=== PATIENT | female | born 1980 | race Caucasian/White ===

== ENCOUNTER → 2017-11-28 08:29 | Outpatient (CLI) | payer MEDICAID, SELFPAY | DX: B18.2 Chronic viral hepatitis C (principal) | CPT/HCPCS: 36415 ==

== ENCOUNTER 2018-01-11 13:23 | Emergency (ER) | payer MEDICAID, SELFPAY ==
[2018-01-11 13:24] VITALS: BP 131/80; PULSE 72; RESP 16; TEMP 37; O2SAT 100; BMI 28.3
--- NOTE | 2018-01-11 14:17 | ED.VISSUMM ---
- ER Visit Summary Date of Service: 01/11/18 Chief Complaint: [Pain, redness, and swelling to both axilla] History of Present Illness: The patient is a 37 F presents the emergency department complaint of swelling and discomfort to both axilla that started 4 days ago. Patient was seen at urgent care 2 days ago and started on Keflex and Bactrim. Patient states that the lesions have gotten larger and more painful making it difficult for her to work. Patient has had incision and drainage of similar abscesses in the past. Patient denies any fever. 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 [] Physical Examination: [HEENT-PERRLA, EOMI. Cranial nerves II through XII grossly intact. TMs clear. Mucous membranes moist. No adenopathy. Cardiovascular-regular rate and rhythm without murmur or ectopy Lungs-clear to auscultation, chest wall stable without crepitus or subcu emphysema Abdomen-normoactive bowel sounds, soft, nontender, no rebound or rigidity, no peritoneal signs. Extremities-intact ?4, normal range of motion, normal pulses, atraumatic]. Evaluation of both axilla does reveal abscesses 2 in the right axilla and one in the left axilla. The abscess in the left axilla is draining some purulent debris spontaneously. There is faint surrounding erythema. Test Results: [None indicated] Emergency Department Course and Treatment: [Patient was offered incision and drainage to which she agreed. Area of the right and left axilla sterilely draped and prepped. Using 1% lidocaine total of 5 cc used to anesthetize all 3 lesions. Using an 11 blade I made 1 cm incision and each lesion with large amount of purulent debris expressed from all 3. Used curved hemostats to undermine the soft tissues.] Treatment Plan: [Patient to continue with her Keflex and Bactrim and I will refer her to for follow-up Disposition: [Discharged home in stable condition] Impression: [Soft tissue abscesses bilateral axilla (hidradenitis suppurativa)-with incision and drainage] This note was generated with [employer] software. It may contain incorrect words, spelling, and punctuation that were not noted in review of the chart prior to signing ED Disposition - Plan for ED Patient: Chief Complaint: Abscess Referrals: Free Fortnuato,Kaylin Ambrose [Primary Care Provider] -
--- NOTE | 2018-01-11 14:20 | ED.DEP ---
ED Disposition - Plan for ED Patient: Chief Complaint: Abscess Instructions: ED Abscess IandD Referrals: Kaylin Torres [Primary Care Provider] - Wilfredo Strong MD [STAFF PHYSICIAN] - 3-5 Days
[2018-01-11 14:30] VITALS: BP 127/59; PULSE 71; RESP 15; O2SAT 96
== END 2018-01-11 14:32 | disposition home or self-care (01) ==
LOC: ED 14:09
PROVIDERS: Emergency Provider Emergency Medicine
DX: L02.412 Cutaneous abscess of left axilla (principal); L02.411 Cutaneous abscess of right axilla; L73.2 Hidradenitis suppurativa; Z72.0 Tobacco use
CPT/HCPCS: 10060; 99282

== ENCOUNTER 2018-02-21 17:31 | Emergency (ER) | payer MEDICAID, SELFPAY ==
[2018-02-21 17:31] VITALS: BP 100/72; PULSE 79; RESP 18; TEMP 36.8; O2SAT 97; BMI 28.2
--- NOTE | 2018-02-21 17:55 | RAD_ITS ---
STUDY: X-RAY - RIGHT ANKLE REASON FOR EXAM: Female, 37 years old. Patient fell, twisted right ankle. Pain and swelling. TECHNIQUE: 3 view(s) of the ankle. COMPARISON: None. FINDINGS: There is no fracture or dislocation. Joint spaces are well-maintained. There is moderate lateral soft tissue swelling. Soft tissues and bony structures are otherwise unremarkable. RAD/Ankle min 3 Views IMPRESSION: Soft tissue swelling, otherwise negative study. Electronically Signed: Angela Schaefer MD at 18:18 EDT Tel , Service support ,
--- NOTE | 2018-02-21 18:59 | ED.VISSUMM ---
- ER Visit Summary Date of Service: 02/21/18 Chief Complaint: [Injury right ankle] History of Present Illness: The patient is a 37 F [presents the emergency department complaint of injuring her right ankle yesterday around 9:30 PM. Patient states that she was texting while walking down the steps and she missed a step and rolled her right ankle. Patient able to bear some weight. She denies any other injuries.] Physical Examination: [HEENT-PERRLA, EOMI. Cranial nerves II through XII grossly intact. TMs clear. Mucous membranes moist. No adenopathy. Cardiovascular-regular rate and rhythm without murmur or ectopy Lungs-clear to auscultation, chest wall stable without crepitus or subcu emphysema Abdomen-normoactive bowel sounds, soft, nontender, no rebound or rigidity, no peritoneal signs. Extremities-intact ?4, normal range of motion, normal pulses. Right ankle-patient has soft tissue swelling over the lateral malleolus with tenderness to palpation. No pain at the proximal fibular head and there is no pain at the base of the fifth metatarsal. She is nervously intact. Test Results: [X-rays of the right ankle obtained showed soft tissue swelling but no fractures.] Emergency Department Course and Treatment: [Patient was given an air splint and crutches] Treatment Plan: [Patient to ice and elevate the extremity and follow-up with primary care physician in 5-7 days. Patient given work restrictions.] Patient given a prescription for Naprosyn. Disposition: [Discharged home in stable condition] Impression: [Right ankle sprain.] This note was generated with [employer] dictation software. It may contain incorrect words, spelling, and punctuation that were not noted in review of the chart prior to signing ED Disposition - Plan for ED Patient: Chief Complaint: Lower Extremity Injury Referrals: Kaylin Torres [Primary Care Provider] -
--- NOTE | 2018-02-21 19:01 | ED.DEP ---
ED Disposition - Plan for ED Patient: Chief Complaint: Lower Extremity Injury Instructions: ED Sprain Ankle W X Ray Prescriptions: Naproxen [Naprosyn] 500 mg PO BID PRN #20 tab Referrals: Kaylin Torres [Primary Care Provider] - 5-7 Days
[2018-02-21 19:17] VITALS: RESP 18; O2SAT 98
== END 2018-02-21 19:18 | disposition home or self-care (01) ==
PROVIDERS: Emergency Provider Emergency Medicine
DX: S93.401A Sprain of unspecified ligament of right ankle, initial encounter (principal); X50.1XXA Overexertion from prolonged static or awkward postures, initial encounter; Y93.9 Activity, unspecified; Y92.89 Other specified places as the place of occurrence of the external cause; Y99.9 Unspecified external cause status; Z72.0 Tobacco use
CPT/HCPCS: 73610; 99284